=== PATIENT | female | born 1985 | race Caucasian/White ===

== ENCOUNTER 2018-06-10 09:22 | Outpatient (REF) | payer MEDICARE, MEDICAID, SELFPAY ==
[2018-06-11 10:54] LABS: Campylobacter PCR SEE COMMENTS; Salmonella PCR SEE COMMENTS; Shiga Toxin PCR SEE COMMENTS; Shigella/Enteroinvasive Ecoli SEE COMMENTS
== END 2018-06-10 09:42 ==
LOC: NCHCN 09:22
PROVIDERS: PCP Specialist/Technologist Athletic Trainer; Visit Provider Family Medicine
DX: R50.9 Fever, unspecified (principal); R19.7 Diarrhea, unspecified
CPT/HCPCS: 87505

== ENCOUNTER 2018-12-17 13:01 | Outpatient (REF) | payer MEDICARE, MEDICAID, SELFPAY ==
[2018-12-19 09:58] LABS: Hepatitis C Ab w Rflx HCV PCR Reactive (NEGAT)
== END 2018-12-17 13:21 ==
LOC: NCHCN 13:01
PROVIDERS: PCP Specialist/Technologist Athletic Trainer; Visit Provider Family Medicine
DX: Z11.59 Encounter for screening for other viral diseases (principal); R69 Illness, unspecified
CPT/HCPCS: 86803; 87522

== ENCOUNTER 2018-12-17 14:45 | Outpatient (CLI) | payer MEDICARE, MEDICAID, SELFPAY ==
--- NOTE | 2018-12-17 13:36 | DI.RAD_ITS ---
SYMPTOMS/DIAGNOSIS: RIGHT FOOT PAIN, M79.671 RIGHT FOOT: Three views. No acute or healing fracture or dislocation, lytic or sclerotic lesion is seen. The joint spaces appear well maintained. There are spurs seen at the posterior calcaneus. The soft tissues are unremarkable. IMPRESSION: No acute abnormality.
== END 2018-12-17 15:05 ==
PROVIDERS: PCP Specialist/Technologist Athletic Trainer; Visit Provider Family Medicine
DX: M79.671 Pain in right foot (principal); M77.31 Calcaneal spur, right foot
CPT/HCPCS: 86803; 73630

== ENCOUNTER 2019-04-15 13:04 | Outpatient (REF) | payer MEDICARE, MEDICAID, SELFPAY ==
[2019-04-15 21:43] LABS: HCT 41.2 % (36.0-46.0); HGB 13.7 g/dL (12.0-15.5); Mean Corp. HGB Concentration 33.3 g/dL (32.0-36.0); Mean Corpuscular Hemoglobin 30.6 pg (27.0-33.0); Mean Corpuscular Volume 92.2 fL (80-95); Mean Platelet Volume 11.5 fL (8.0-11.0); Platelet Count 231 x1000/uL (130-400); RBC 4.47 m/cumm (4.00-5.20); RBC Distribution Width 13.5 % (11.7-14.6); White Blood Cell Count 8.86 k/cumm (4.4-10.8)
[2019-04-15 22:18] LABS: ALT 25 U/L (14-59); AST 14 U/L (15-37); Albumin 3.8 g/dL (3.4-5.0); Alkaline Phosphatase 76 U/L (46-116); Anion Gap 10.3 mmol/L (3-11); BUN 11 mg/dL (7-18); Bilirubin, Total 0.5 mg/dL (0.2-1.0); CO2 23.7 mmol/L (21.0-32.0); CREATININE 0.71 mg/dL (0.55-1.02); Calcium 8.7 mg/dL (8.5-10.1); Chloride 105 mmol/L (98-107); Glucose 76 mg/dL (70-100); Potassium 4.2 mmol/L (3.5-5.1); Sodium 139 mmol/L (136-145); TSH (W/Ref FT4) 1.98 uIU/mL (0.36-3.74); Total Protein 7.1 g/dL (6.4-8.2)
== END 2019-04-15 13:24 ==
LOC: NCHCN 13:04
PROVIDERS: PCP Specialist/Technologist Athletic Trainer; Visit Provider Family Medicine
DX: R53.83 Other fatigue (principal); R23.8 Other skin changes; B19.20 Unspecified viral hepatitis C without hepatic coma
CPT/HCPCS: 80053; 85027; 84443

== ENCOUNTER 2019-04-29 10:39 | Outpatient (CLI) | payer MEDICARE, MEDICAID, SELFPAY ==
--- NOTE | 2019-04-29 10:15 | DI.RAD_ITS ---
EXAM: XR KNEE RT 2V AP,LAT INDICATION: pain. COMPARISON: RIGHT KNEE LIMITED 1 OR 2 VIEW from 11/04/2015 TECHNIQUE: 2D digital imaging was performed. FINDINGS: Hardware is again noted in the proximal tibia. There is stable narrowing of the medial femoral tibia l joint space as well as periarticular spurring. There is mild spurring at the patellofemoral joint. IMPRESSION: Stable postsurgical and degenerative changes.
== END 2019-04-29 10:59 ==
PROVIDERS: PCP Specialist/Technologist Athletic Trainer; Referring Provider Specialist/Technologist Athletic Trainer; Visit Provider Orthopaedic Surgery
DX: M25.561 Pain in right knee (principal); M17.11 Unilateral primary osteoarthritis, right knee; Z98.890 Other specified postprocedural states
CPT/HCPCS: 99213; 73560

== ENCOUNTER 2019-05-09 08:55 | Outpatient (CLI) | payer MEDICARE, MEDICAID, SELFPAY ==
[2019-05-09 10:21] LABS: Abs Immature Grans 0.02 k/cumm (0.0-0.09); Absolute Basophil Count 0.03 k/cumm (0.0-0.2); Absolute Eosinophil Count 0.35 k/cumm (0.0-0.7); Absolute Lymphocyte Count 2.38 k/cumm (1.2-3.4); Basophils % 0.3; Eosinophils % 3.2; HGB 15.8 g/dL (12.0-15.5); Immature Grans % 0.2; Lymphocytes % 21.7; Mean Corp. HGB Concentration 34.3 g/dL (32.0-36.0); Mean Corpuscular Hemoglobin 31.3 pg (27.0-33.0); Mean Corpuscular Volume 91.3 fL (80-95); Mean Platelet Volume 9.9 fL (8.0-11.0); Monocytes % 5.7; Neutrophils % 68.9; Platelet Count 264 x1000/uL (130-400); RBC 5.04 m/cumm (4.00-5.20); RBC Distribution Width 13.6 % (11.7-14.6); White Blood Cell Count 10.97 k/cumm (4.4-10.8)
[2019-05-09 10:28] LABS: Absolute Monocyte Count 0.63 k/cumm (0.11-0.7); Absolute Neutrophil Count 7.56 k/cumm (1.2-6.7)
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
== END 2019-05-09 09:15 ==
PROVIDERS: PCP Family Medicine; Visit Provider Orthopaedic Surgery
DX: M25.561 Pain in right knee (principal); M17.11 Unilateral primary osteoarthritis, right knee; Z01.818 Encounter for other preprocedural examination; Z01.812 Encounter for preprocedural laboratory examination
CPT/HCPCS: 36415; NC; 85025

== ENCOUNTER 2019-05-12 06:35 | Inpatient (IN) | payer MEDICARE, MEDICAID, SELFPAY ==
[2019-05-12] VITALS (15 sets, daily range): BP systolic 116–154; BP diastolic 52–93; PULSE 61–101; RESP 12–30; TEMP 36.6–37.9; O2SAT 94–100
[2019-05-12] MEDS: Lactated Ringers 1,000 ML 80 ML IV ×2 (07:43→13:13)
[2019-05-12] MEDS: ceFAZolin 1 GM/50 ML BAG IVPB (09:39)
[2019-05-12] MEDS: Hydrogen Peroxide 3% 480 ML BTL (10:07)
--- NOTE | 2019-05-12 12:40 | DI.RAD_ITS ---
EXAM: XR KNEE RT 2V AP,LAT INDICATION: check total knee components in RR. COMPARISON: XR KNEE RT 2V AP,LAT from 04/29/2019 TECHNIQUE: 2D digital imaging was performed. FINDINGS: The patient is status post TKA. The prosthesis in excellent position, surrounding bone intact.
[2019-05-12] MEDS: fentaNYL 100 MCG/2 ML VIAL IVP ×2 (12:44→13:02)
[2019-05-12] MEDS: HYDROmorphone 2 MG/ML VIAL IVP ×4 (12:50→13:41)
[2019-05-12] MEDS: Normal Saline Flush 10 ML SYR IV ×2 (12:50→23:31)
[2019-05-12] MEDS: HYDROcodone 5/Acetaminophen 325 TAB PO ×2 (14:15→19:38)
[2019-05-12] MEDS: Docusate Sodium 100 MG CAP PO ×2 (14:15→19:38)
[2019-05-12] MEDS: Normal Saline 1,000 ML 125 ML IV ×2 (14:16→21:03)
[2019-05-12] MEDS: fentaNYL 100 MCG/2 ML VIAL 50 MCG IVP ×2 (16:03→23:30)
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
[2019-05-12] MEDS: oxyCODONE-CR 10 MG TABCR PO (17:38)
[2019-05-12] MEDS: Ketorolac 30 MG/ML VIAL IVP ×2 (17:38→23:30)
[2019-05-12] MEDS: Aspirin 81 MG CHEW PO (19:38)
[2019-05-13] MEDS: HYDROcodone 5/Acetaminophen 325 TAB PO ×3 (03:50→20:32)
[2019-05-13] MEDS: oxyCODONE-CR 10 MG TABCR PO ×2 (05:55→17:12)
[2019-05-13] MEDS: Ketorolac 30 MG/ML VIAL IVP ×3 (05:55→17:11)
[2019-05-13] MEDS: Normal Saline 1,000 ML 125 ML IV (05:55)
[2019-05-13] MEDS: Normal Saline Flush 10 ML SYR IV ×2 (05:56→10:17)
[2019-05-13 07:10] VITALS: BP 126/89; PULSE 74; RESP 16; TEMP 36.8; O2SAT 98
[2019-05-13 07:42] LABS: HCT 40.9 % (36.0-46.0); HGB 13.7 g/dL (12.0-15.5); Mean Corp. HGB Concentration 33.5 g/dL (32.0-36.0); Mean Corpuscular Hemoglobin 30.9 pg (27.0-33.0); Mean Corpuscular Volume 92.3 fL (80-95); Mean Platelet Volume 10.5 fL (8.0-11.0); Platelet Count 217 x1000/uL (130-400); RBC 4.43 m/cumm (4.00-5.20); RBC Distribution Width 13.5 % (11.7-14.6); White Blood Cell Count 11.76 k/cumm (4.4-10.8)
[2019-05-13] MEDS: Ascorbic Acid 500 MG TAB PO (08:48)
[2019-05-13] MEDS: Multivitamin w/Minerals TAB 1 TAB PO (08:48)
[2019-05-13] MEDS: Docusate Sodium 100 MG CAP PO ×3 (08:49→20:32)
[2019-05-13] MEDS: Aspirin 81 MG CHEW PO ×2 (08:49→20:32)
[2019-05-13] MEDS: Folic Acid 1 MG TAB PO (08:49)
[2019-05-13] MEDS: Pantoprazole 40 MG TABCR PO (08:49)
[2019-05-13] MEDS: fentaNYL 100 MCG/2 ML VIAL 50 MCG IVP ×2 (08:49→13:04)
[2019-05-13 11:20] VITALS: BP 133/61; PULSE 81; RESP 16; TEMP 36.6; O2SAT 99
--- NOTE | 2019-05-13 12:38 | PT.INTREAT ---
Date of service: 05/13/19 Time of Service: 12:39 PT Notes Inpatient Physical Therapy Treatment Note [facility] Date: 05/13/19 PRECAUTIONS:Fall, WBAT R SUBJECTIVE: Catherine reports that she continues to have significant pain in her R knee. She is agreeable to participating in PT. OBJECTIVE: PAIN: Patient c/o significant R LE pain with all activities. BED MOBILITY/TRANSFERS Supine?sit: I with HOB flat Sit?supine: I with HOB flat Sit-stand: SBA in a.m.; S in p.m. Stand-sit: SBA in a.m.; S in p.m. GAIT Assistive Device: FWW Weight bearing: WBAT R Assist: SBA Distance: 20' x2 in a.m.; 40' +20' x2 in p.m. Deviation: Cueing for increased weight bearing t/o R LE, increased R LE pain THEREX: Patient completed a LE strengthening and stabilization program, in a long-sit position in a.m. and in a supine position in p.m., as per flow sheet. Patient was able to perform active SLR x7 without Kessler dressing in p.m., she was unable to continue due to increased R LE pain. Unable to obtain ROM measurements due to increased pain. She ends with cryocuff to R LE. TOILETING: Patient toileted with SBA for transfers in a.m.; she toileted with S for transfers in p.m. REMOVAL OF KESSLER: Incision clean, dry, and intact. No abnormal sensitivity, redness, or blistering. Replaced with Xeroform gauze, 4?4 gauze, tape, and thigh-high DARLENE stocking. ASSESSMENT: Patient tolerated a progression in gait distance with FWW support and SBA, c/o increased R LE pain. She would benefit from continued gait and transfer training, as well as strengthening for improved mobility and activity tolerance. PLAN: Continue with PT's POC TREATMENT CODE/TIME: Session 1: 35 minutes; [id number], [id number] Session 2: 65 minutes; 51169 x3, 44087 x2
--- NOTE | 2019-05-13 14:41 | W.PM.PROGNOT ---
Date of Service Date of service: 05/13/19 Time of Service: 14:41 Assessment and Plan Assessment and plan (1) Status post total knee replacement: Status: Acute Assessment and plan: Assessment: Stable postop day #1 right total knee replacement. I think is reasonable to take off her Kessler dressing and get her moving at this time. Plan: DC Kessler dressing this afternoon. Start active flexion of her right knee today. Continue to mobilize per protocol for total knee replacement. DC IV fluids. Should be able to DC home when she is taking only p.o. pain meds and is fully independent with her mobility. Subjective Subjective Interval history since last seen: She says her pain is much less today. She is glad is finally coming under control. She was surprised that she could actually step on her leg and the did not feel too bad. She is walked to the bathroom and back today. She would like to have a Kessler dressing off since she feels it somewhat constricting. Exam Narrative Exam Narrative: She is afebrile vital signs are stable. Hemoglobin today is 13.7 g. She has voided since her Guerrier was DC'd. She has good active plantar flexion dorsiflexion of her right toes and ankle. She has good sensation to her right foot. Intakes and outputs are good. She is ambulated to the bathroom and back with PT today. Objective Objective Clinical Data: Abnormal lab results 05/13/19 Range/Units 07:09 WBC 11.76 H (4.4-10.8) k/cumm Vital Signs Temperature 36.6 C 05/13/19 11:20 Temperature Source Tympanic 05/13/19 11:20 Pulse 81 05/13/19 11:20 Pulse Rhythm Regular 05/13/19 10:50 Respiratory Rate 16 05/13/19 11:20 Respiratory Effort Non-Labored 05/13/19 10:50 Respiratory Depth Normal 05/13/19 10:50 Respiratory Pattern Normal 05/13/19 10:50 Blood Pressure 133/61 05/13/19 11:20 Pulse Oximetry 99 05/13/19 11:20 Oxygen Delivery Method Room Air 05/13/19 11:20 Oxygen Flow Rate 0 05/13/19 11:20 Pain Level 8 05/13/19 13:04 Comment 05/13/19 05:40 Intake & Output 05/12/19 05/13/1905/13/19 23:59 11:59 23:59 Intake Total 1914.250 / 2885.250 1770 / 1770 Output Total 1650 / 1650 Balance 1915.250 / 2585.250 120 / 120 Intake: IV 1665.250 / 2635.250 1100 / 1100 Oral 250 / 250 670 / 670 Output: Urine 1650 / 1650 Other: Urine Color Yellow Urine Appearance Clear Clear Comment dark yellow Emesis Description None Voiding Methods Toilet Laboratory Results WBC 11.76 k/cumm (4.4-10.8) H 05/13/19 07:09 RBC 4.43 m/cumm (4.00-5.20) 05/13/19 07:09 Hgb 13.7 g/dL (12.0-15.5) 05/13/19 07:09 Hct 40.9 % (36.0-46.0) 05/13/19 07:09 MCV 92.3 fL (80-95) 05/13/19 07:09 MCH 30.9 pg (27.0-33.0) 05/13/19 07:09 MCHC 33.5 g/dL (32.0-36.0) 05/13/19 07:09 RDW 13.5 % (11.7-14.6) 05/13/19 07:09 Plt Count 217 x1000/uL (130-400) 05/13/19 07:09 MPV 10.5 fL (8.0-11.0) 05/13/19 07:09
--- NOTE | 2019-05-13 15:12 | INITIAL_ITS ---
Care Management Initial Assess REASON FOR HOSPITALIZATION:: Post-Op R Total Knee PAST MEDICAL HISTORY/PAST SURGICAL HISTORY:: Anxiety and depression, asthma, Hep C w/o coma; chronic, anemia, substance abuse, osteoarthritis knee, PTSD, arthroscopic knee surgery, tympanostomy tube placement, osteoarthritis of right knee PREVIOUS FUNCTIONAL STATUS/SOCIAL/FAMILY SUPPORTS:: Catherine resides in [place] with her significant other, Andrew. She is independent at baseline, though on disability due to functional issues related to her mental health. CURRENT FUNCTIONAL STATUS:: Catherine is sitting up in her chair, open and engaged in conversation with this policy writer sales. Her significant other is also sitting in a chair in the room and engages well and appears supportive. ADVANCE DIRECTIVES:: None on file. Has patient been provided with information about the portal?: Yes Did the patient sign up for the portal?: No CODE STATUS:: Full Code INSURANCE COVERAGE / FINANCIAL ISSUES:: Medicare. Medicaid CURRENT HOME/COMMUNITY SERVICES/EQUIPMENT:: No current services or equipment. PRIMARY CARE PHYSICIAN:: Shelley Pal POTENTIAL DISCHARGE NEEDS:: New orders for [facility] PT/OT PATIENT/FAMILY EDUCATION NEEDS:: Review of discharge instructions, DME options. ANTICIPATED BARRIERS TO DISCHARGE:: None identified. TRANSPORTATION:: Via private vehicle with her significant other. PLAN:: Catherine will return home when ready per MD. Anticipate she will have new orders for PT/OT through [facility] and a new FWW through [facility]; patient's choice. She will follow up with Dr. Saini and her plan of care as prescribed. She will transport via private vehicle with her significant other, Andrew.
[2019-05-13 15:47] VITALS: BP 136/83; PULSE 74; RESP 18; TEMP 36.9; O2SAT 99
--- NOTE | 2019-05-13 16:31 | ROE_ITS ---
DATE OF PROCEDURE: May 12, 2019 PREOPERATIVE DIAGNOSIS: Osteoarthritis right knee. POSTOPERATIVE DIAGNOSIS: Same. PROCEDURE: Right total knee replacement. COMPONENTS USED: 1. Size 2 femoral component, posterior cruciate-retaining. 2. Size 2 tibial tray. 3. Size 2, 12.5 rotating platform polyethylene tibial insert. The patella was not resurfaced. All components were cemented. ANESTHESIA: General plus femoral nerve block, Aristeo Reis CRNA SURGEON: Ren Saini M.D. ADMISSIONS DEAN: Jam Sherwood INDICATIONS: This is a 34-year-old white female with long-standing osteoarthritis of her right knee. She had a proximal tibial osteotomy performed a little over nine years ago, which provided good rel ief of pain until the last 6 to 8 months. Her pain has become intolerable and she cannot function wi th her activities of daily living because of the pain. Total knee replacement was therefore recommen ded to alleviate her pain. The risks and complications of the procedure were explained to the patien t in detail preoperatively. PROCEDURE: The patient was taken to the Operating Room on 05/12/19. She was placed supine on the op erating table. A femoral nerve block was administered and then a general anesthetic was administered . A proximal tourniquet was applied to the right thigh and then the right lower extremity was prepp ed from toes to tourniquet and draped free in the usual sterile fashion. Under proximal tourniquet control, I made an incision in line with her old scar from the proximal tib ial osteotomy, and then curved it back to the midline proximally, ending about four inches proximal t o the patella. The incision was carried down to the fascia. Subcutaneous veins were cauterized. A medial parapatellar capsular incision was made. The patella was everted and the knee was hyperflexed . The anterior cruciate ligament was sacrificed. The medial and lateral menisci were excised. A me dial subperiosteal release was performed to balance her varus deformity. The distal femur was then r esecting using intramedullary alignment guides and jigs. She was found to require a size 2 femoral c omponent. The proximal tibia was then resected using extramedullary alignment guides and jigs. In t he process of resecting the tibia, a broken screw from her previous tibial osteotomy was identified a nd was able to be removed with minimal bone loss. The keel for the tibial component was then reamed and punched out in proper rotation alignment. Trial reduction showed a 12.5 mm insert provided good stability throughout the range of flexion while still allowing full extension of the knee. Because o f her young age and mild damage to the patella, I decided not to resurface the patella. The proximal tibia was prepared for cementing with pulse irrigation lavage of saline solution and dry ing with peroxide-soaked strip sponges. One batch of gentamicin-impregnated methylmethacrylate was v acuum-mixed and hand-packed onto the prepared tibia and on the undersurface of the tibial tray. The tibial tray was inserted and impacted into place with the impactor and mallet. The tibial tray was f urther pressurized using the trial components and extending the knee. Excess cement was trimmed from the margins of the tibial tray while the cement was still soft using the plastic cement removal tool . When the first batch of methylmethacrylate had cured, the trial components were removed. The dril l for the lugs of the femoral component were then drilled and then the distal femur was prepared for cementing with pulse irrigation lavage of saline solution and drying with peroxide-soaked strip spong es. Another batch of gentamicin-impregnated methylmethacrylate was vacuum-mixed and hand-packed onto the prepared distal femur and on the posterior aspect of the femoral component. The femoral compone nt was impacted into place with the impactor and mallet and pressurized using the trial insert and ex tending the knee. Excess cement was trimmed from the margins of the femoral component while the ceme nt was still soft using the plastic cement removal tool. When the second batch of methylmethacrylate had cured, the trial insert was removed. The posterior recesses were checked and any residual bone or cement debris was removed at this point. The knee was irrigated with pulse irrigation lavage a fi nal time and then was irrigated with Betadine and saline solution, which was allowed to remain in the wound for a minute before suctioning. Patellar tracking was checked using the kjzi-yy-hv-thumb and the patella tracked with just a mild tendency to track laterally. I then performed a limited lateral retinacular release using the pie-crusting technique. The actual 12.5, size 2 tibial insert was the n placed into the tibial component and reduced onto the femoral condyles. The right knee was flexed over soft goods and closure was begun. The medial parapatellar capsular incision was approximated wi th interrupted uqhqit-[id number]-kbdqh sutures of #1 Vicryl suture material. The quadriceps tendon was repai red with interrupted quujns-ey-hhelm sutures of #1 Vicryl suture material. The wound margins were in filtrated with 0.5% Marcaine with an epinephrine solution, as was the knee joint capsule. I then ins tilled into the knee an additional 20 cc's of 0.5% Marcaine with an epinephrine solution for postoper ative analgesia. The subcu was approximated with interrupted #2-0 Vicryl sutures. The skin edges we re approximated skin kathy. Sterile dressings were applied followed by a long-leg Kessler compressiv e dressing. A knee immobilizer splint was placed over the compressive dressing to maintain the knee in extension. The tourniquet was released. Blood loss was minimal. The patient's anesthesia was re versed without complications. She was discharged to the recovery room in good condition.
[2019-05-13 19:01] VITALS: BP 138/96; PULSE 91; RESP 16; TEMP 36.8; O2SAT 98
[2019-05-14] MEDS: Ketorolac 30 MG/ML VIAL IVP ×4 (00:30→23:03)
[2019-05-14 01:52] VITALS: BP 131/81; PULSE 77; RESP 17; TEMP 37; O2SAT 99
[2019-05-14] MEDS: HYDROcodone 5/Acetaminophen 325 TAB PO ×3 (02:30→14:20)
[2019-05-14] MEDS: oxyCODONE-CR 10 MG TABCR PO ×2 (05:27→18:13)
[2019-05-14] MEDS: Normal Saline Flush 10 ML SYR IV ×4 (05:28→23:04)
[2019-05-14 05:59] VITALS: BP 132/92; PULSE 81; RESP 18; TEMP 37.1; O2SAT 98
[2019-05-14] MEDS: Docusate Sodium 100 MG CAP PO ×3 (07:39→20:05)
[2019-05-14] MEDS: Multivitamin w/Minerals TAB 1 TAB PO (07:39)
[2019-05-14] MEDS: Folic Acid 1 MG TAB PO (07:39)
[2019-05-14] MEDS: Ascorbic Acid 500 MG TAB PO (07:40)
[2019-05-14] MEDS: Pantoprazole 40 MG TABCR PO (07:41)
[2019-05-14] MEDS: Aspirin 81 MG CHEW PO (07:41)
[2019-05-14 07:55] VITALS: BP 135/93; PULSE 75; RESP 20; TEMP 37.4; O2SAT 97
[2019-05-14 08:55] LABS: HCT 39.1 % (36.0-46.0); HGB 13.1 g/dL (12.0-15.5); Mean Corp. HGB Concentration 33.5 g/dL (32.0-36.0); Mean Corpuscular Volume 92.4 fL (80-95); Mean Platelet Volume 10.6 fL (8.0-11.0); Platelet Count 187 x1000/uL (130-400); RBC 4.23 m/cumm (4.00-5.20); RBC Distribution Width 13.2 % (11.7-14.6); White Blood Cell Count 10.22 k/cumm (4.4-10.8)
[2019-05-14] MEDS: fentaNYL 100 MCG/2 ML VIAL 50 MCG IVP (09:19)
[2019-05-14 09:58] VITALS: O2SAT 97
--- NOTE | 2019-05-14 11:29 | CMPROGNOTE_ITS ---
Care Management Progress Note S/O: Per PT, Catherine is making slow progress and struggling with increased pain. 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 CM discussed possiblility of SNF at PT recommendation, Catherine became teary and reported she would like to return home to her dog and her significant other. She reported she has four steps to enter her home but shared concerns that she is not progressing as much as she should and feels she is regressing with progress. She reports bleeding during PT today, CM provided supportive listening and provided re-assurance. CM continues to follow. A: 34 year old female admitted to [facility] 05/12/19 for Post-Op Right total knee surgery completed by Dr. Saini. P: Catherine will return home when ready per MD. Anticipate she will have new orders for PT/OT through [facility] and a new FWW through [facility]; patient's choice. She will follow up with Dr. Saini and her plan of care as prescribed. She will transport via private vehicle with her significant other, Andrew.
--- NOTE | 2019-05-14 12:16 | PT.INTREAT ---
Date of service: 05/14/19 Time of Service: 12:16 PT Notes Inpatient Physical Therapy Treatment Note [facility] Date: 05/14/19 PRECAUTIONS:Fall, WBAT R SUBJECTIVE: Catherine reports that she has noticed decreased pain in her R knee today versus yesterday. She continues to express concern regarding her home situation, as she is the primary caregiver and states that she will have no additional help once she is home. She is agreeable to participating in PT. OBJECTIVE: Attempted to see patient in afternoon, held session due to bloody drainage from incision site. Alerted nursing. Please see nursing notes for specific details on drainage and re-dressing incision site. Patient was then seen by Agnieszka Franklin, PT, following clearance from Dr. Saini. PAIN: Patient c/o R LE pain with all activities. BED MOBILITY/TRANSFERS Supine?sit: I with HOB flat Sit?supine: I with HOB flat Sit-stand: I Stand-sit: I GAIT Assistive Device: FWW Weight bearing: WBAT R Assist: SBA Distance: 60' + 20' + 40' Deviation: Cueing for increased weight bearing t/o R LE, increased R LE pain, step-through gait pattern instruction THEREX: Patient completed a LE strengthening and stabilization program, in a supine position in a.m. and in a position in p.m., as per flow sheet. Patient was able to perform active SLR x10. R knee AROM is -5-75 degrees. She ends with cryocuff to R LE. ASSESSMENT: Patient tolerated a progression in gait distance with FWW support and SBA, using step-through gait pattern following instruction, although with c/o increased R LE pain. She would benefit from continued gait and transfer training, as well as strengthening for improved mobility and activity tolerance. PLAN: Continue with PT's POC TREATMENT CODE/TIME: 35 minutes; 52927, [id number]
[2019-05-14] MEDS: fentaNYL 25 MCG PATCH TD (12:44)
[2019-05-14] MEDS: Tranexamic Acid 650 MG TAB 1300 MG PO (14:13)
--- NOTE | 2019-05-14 15:19 | W.PM.PROGNOT ---
Date of Service Date of service: 05/14/19 Time of Service: 15:19 Assessment and Plan Assessment and plan (1) Status post total knee replacement: Status: Acute Assessment and plan: Assessment: 48 hours postop right total knee replacement progressing well. I reassured her that the bleeding from her incision is minor and will not slow her progress. I think the Mepilex dressing with overlying Jamison bandage and ABD pad should limit further bleeding. I think that the oral TXA would also help. I do not see any reason to slow down her rehab. Plan: We will continue to mobilize her per protocol with PT. Will monitor wound for further bleeding. Will DC home when she is fully independent and taking only p.o. pain meds. Subjective Subjective Interval history since last seen: Patient experienced bleeding that soaked through her dressings in the head refrigerating engineer around 1 AM when she got up to go to the bathroom. Said blood get over the floor. She had 2 more episodes of bleeding to the dressings this morning and afternoon time. I was paged at 1:30 PM to be informed about the bleeding from the lower part of the incision. I recommend reinforcing the dressings until I could see her. Also ordered a 1300 mg dose of tranexamic acid. Catherine is really quite anxious now about the whole incident. She is concerned about doing her exercises and that she may be doing too much. Prior to this onset she was actually moving very well. Still having a lot of pain but it seems to be controlled with her medications so far. Exam Narrative Exam Narrative: I remove her dressings. I can see where she has had some bleeding from the lower portion of her incision. There is no spontaneous bruising. There is no erythema. The rest of the incision is fully sealed. There is no active bleeding at this time. There is no subcutaneous hematoma seen. I apply a Mepilex dressing to seal the incision. I then overwrapped with an ABD pad and 6 inch Jamison bandage. She is afebrile. Her hemoglobin is 13.1 g today. She is flexing and need to 75 degrees. She is independent with transfers. She is walking over 100 feet. Objective Objective Clinical Data: Vital Signs Temperature 37.4 C 05/14/19 07:55 Temperature Source Tympanic 05/14/19 07:55 Pulse 75 05/14/19 07:55 Pulse Rhythm Regular 05/14/19 09:58 Respiratory Rate 20 05/14/19 07:55 Respiratory Effort Non-Labored 05/14/19 09:58 Respiratory Depth Normal 05/14/19 09:58 Respiratory Pattern Normal 05/14/19 09:58 Blood Pressure 135/93 H 05/14/19 07:55 Pulse Oximetry 97 05/14/19 09:58 Oxygen Delivery Method Room Air 05/14/19 09:58 Oxygen Flow Rate 0 05/14/19 09:58 Pain Level 9 05/14/19 14:20 Comment 05/13/19 05:40 Intake & Output 05/13/19 05/14/19 05/14/19 23:59 11:59 23:59 Intake Total 1580 / 3350 790 / 790 Output Total 850 / 2500 1000 / 1000 Balance 730 / 850 -210 / -210 Intake: IV 1100 / 2200 50 / 50 Oral 480 / 1150 740 / 740 Output: Urine 850 / 2500 1000 / 1000 Other: Urine Color Yellow Yellow Yellow Urine Appearance Clear Clear Comment unable to measure urine, no hat in toilet Voiding Methods Toilet Toilet Toilet Laboratory Results WBC 10.22 k/cumm (4.4-10.8) 05/14/19 08:37 RBC 4.23 m/cumm (4.00-5.20) 05/14/19 08:37 Hgb 13.1 g/dL (12.0-15.5) 05/14/19 08:37 Hct 39.1 % (36.0-46.0) 05/14/19 08:37 MCV 92.4 fL (80-95) 05/14/19 08:37 MCH 31.0 pg (27.0-33.0) 05/14/19 08:37 MCHC 33.5 g/dL (32.0-36.0) 05/14/19 08:37 RDW 13.2 % (11.7-14.6) 05/14/19 08:37 Plt Count 187 x1000/uL (130-400) 05/14/19 08:37 MPV 10.6 fL (8.0-11.0) 05/14/19 08:37
[2019-05-14 15:40] VITALS: BP 120/85; PULSE 73; RESP 20; TEMP 37.2; O2SAT 99
--- NOTE | 2019-05-14 16:41 | PT.INTREAT ---
Date of service: 05/14/19 PT Notes PT Inpatient Treatment Note Date: 05/14/19 PRECAUTIONS: Fall. Standard. WBAT R. SUBJECTIVE: Catherine is agreeable to a follow up session with PT this afternoon. She is agreeable to holding off on the stair negotiation training in light of the earlier minor incisional bleeding she had as she appears to be mildy shaken by it when this PT came in. She is amenable to doing light exercises while seated. She did express her concern about her ability to care for her significant other Andrew considering her current mobility level and pain complaint. OBJECTIVE: ZACH wraps on R LE with no bloody drainage observed. PAIN: 8/10 pain on R knee with exercises. BED MOBILITY/TRANSFERS Supine?sit: I with HOB flat Sit?supine: I with HOB flat Sit-stand: I Stand-sit: I GAIT Assistive Device: FWW Weight bearing: WBAT R Assist: SBA Distance: 15' from bathroom to recliner Deviation: Patient continues to complain of pain with weight-bearing although she does demonstrate increased tolerance compared to day of evaluation. She did not report any oozing/drainage felt on incision site during this short ambulation activity. R knee flexion continues to be limited. THEREX: Patient tolerated gluteal and quadriceps setting exercises followed by ankle DF/PF and LAQs on the R with report of 8/10 pain on the R knee. Patient's cryocuff was reapplied after exercise activity. ASSESSMENT: Patient is demonstrating slow functional mobility gains but remains limited by pain. She may benefit from SNF placement in order to progress her mobility level which will allow continued ability to perform her caregiving duties. PLAN: Continue with POC as established. TREATMENT CODE/TIME: 72196 x 17 minutes
[2019-05-14 20:25] VITALS: BP 142/91; PULSE 75; RESP 19; TEMP 37.1; O2SAT 99
[2019-05-15] VITALS (7 sets, daily range): BP systolic 129–151; BP diastolic 79–99; PULSE 65–88; RESP 18–20; TEMP 36.6–37.4; O2SAT 97–100
[2019-05-15] MEDS: HYDROcodone 5/Acetaminophen 325 TAB PO ×4 (01:19→22:09)
[2019-05-15] MEDS: Acetaminophen 325 MG TAB 650 MG PO ×2 (03:42→15:42)
[2019-05-15] MEDS: oxyCODONE-CR 10 MG TABCR PO ×2 (05:31→17:55)
[2019-05-15] MEDS: Ketorolac 30 MG/ML VIAL IVP ×3 (05:32→17:55)
[2019-05-15] MEDS: Docusate Sodium 100 MG CAP PO ×3 (07:58→22:10)
[2019-05-15] MEDS: Multivitamin w/Minerals TAB 1 TAB PO (07:58)
[2019-05-15] MEDS: Ascorbic Acid 500 MG TAB PO (07:58)
[2019-05-15] MEDS: Pantoprazole 40 MG TABCR PO (07:59)
[2019-05-15] MEDS: Aspirin 81 MG CHEW PO (07:59)
[2019-05-15] MEDS: Folic Acid 1 MG TAB PO (07:59)
[2019-05-15] MEDS: Normal Saline Flush 10 ML SYR IV ×3 (11:11→17:55)
[2019-05-15] MEDS: fentaNYL 100 MCG/2 ML VIAL 50 MCG IVP (11:11)
--- NOTE | 2019-05-15 11:27 | CMPROGNOTE_ITS ---
Care Management Progress Note S/O: Catherine continues to make progress with mobility and pain management. Per MD, she will discharge once she is able to safely transfer with only oral medications. CM filled FWW for Catherine through [facility] at her request. CM continues to follow. A: 34 year old female admitted to [facility] 05/12/19 for Post-Op Right total knee surgery completed by Dr. Saini. P: Catherine will return home when ready per MD. Anticipate she will have new orders for PT/OT through [facility] and a new FWW through [facility]; patient's choice. She will follow up with Dr. Saini and her plan of care as prescribed. She will transport via private vehicle with her significant other, Andrew.
--- NOTE | 2019-05-15 11:45 | PT.INTREAT ---
Date of service: 05/15/19 Time of Service: 11:45 PT Notes Inpatient Physical Therapy Treatment Note [facility] Date: 05/15/19 PRECAUTIONS:Fall, WBAT R SUBJECTIVE: Catherine continues to note improvement in her mobility and decreased pain in R knee. She is agreeable to participate in PT. OBJECTIVE: Patient has been cleared to ambulate and transfer independently within her room using FWW, but is not required to use knee immobilizer. No bleeding or drainage noted from incision site during morning PT session. During the afternoon session, bloody drainage noted under Mepilex dressing, which has not soaked through. Nursing alerted, held further ther ex and knee flexion measurements as a result. PAIN: Patient c/o R LE pain with all activities. BED MOBILITY/TRANSFERS Sit-stand: I Stand-sit: I GAIT Assistive Device: FWW Weight bearing: WBAT R Assist: SBA in a.m.; I S in p.m. Distance: 40' x2 + 20' in a.m.; 20' 100' +150' in p.m. Deviation: Increased R LE pain, step-through gait pattern instruction, cueing for continuous FWW advancement in both a.m. and p.m.; standing rest x2, seated rest x1 in p.m. THEREX: Patient completed a LE strengthening and stabilization program, in a long-sitting position in a.m. and p.m., as per flow sheet. Patient is able to perform active SLR x10. R knee extension is approximately 0 degrees. She ends with cryocuff to R LE. STAIRS: Up/down 6x4 and 4x6 using B rails and a step-to pattern with CGA-SBA in a.m.; up/down 3?4 and 2?6 using B axillary crutches and a step to pattern with SBA?S in p.m. ASSESSMENT: Patient tolerated a significant progression in gait distance with FWW support and supervision, using step-through gait pattern and continuous FWW advancement, following instruction, although with c/o increased R LE pain. She was also able to tolerate the addition of stair training using B axillary crutches. She would benefit from continued gait and transfer training, as well as strengthening for improved mobility and activity tolerance. PLAN: Continue with PT's POC TREATMENT CODE/TIME: Session 1: 40 minutes; 23312 x2, 82062 Session 2: 45 minutes; 57820 x2, 59038
--- NOTE | 2019-05-15 14:55 | W.PM.PROGNOT ---
Date of Service Date of service: 05/15/19 Time of Service: 14:56 Assessment and Plan Assessment and plan (1) Status post total knee replacement: Status: Acute Assessment and plan: Assessment: Making steady progress at postop day #3 right total knee replacement. She has some minor bleeding from the incision. Pain is coming under control. This is the only thing holding her back from going home. When she is just taking p.o. pain meds she can go home. I think this will be within the next day or 2. Plan: Continue mobilize with physical therapy. DC home when taking only p.o. pain meds. Subjective Subjective Patient reports: still having pain and pain is less Interval history since last seen: Better every day. She finds IV Toradol is very helpful. She is able to go to the bathroom and back by herself now. Exam Narrative Exam Narrative: She is afebrile vital signs stable. Neurovascular examination right foot normal. She is had some bleeding under her Mepilex dressing but it has not soaked through. She is able to do an active straight leg raise so she does not need her immobilizer. Objective Objective Clinical Data: Vital Signs Temperature 37.4 C 05/15/19 11:25 Temperature Source Skin 05/15/19 11:25 Pulse 71 05/15/19 11:25 Pulse Rhythm Regular 05/15/19 08:09 Respiratory Rate 19 05/15/19 11:25 Respiratory Effort 05/15/19 08:09 Respiratory Depth Normal 05/15/19 08:09 Respiratory Pattern Normal 05/15/19 08:09 Blood Pressure 146/99 H 05/15/19 11:25 Pulse Oximetry 97 05/15/19 11:25 Oxygen Delivery Method Room Air 05/15/19 11:25 Oxygen Flow Rate 0 05/15/19 11:25 Pain Level 7 05/15/19 14:16 Comment 05/15/19 07:10 Intake & Output 05/14/19 05/15/19 05/15/19 23:59 11:59 23:59 Intake Total 20 / 810 1020 / 1260 240 / 1260 Output Total 800 / 1800 950 / 950 Balance -780 / -990 70 / 310 240 / 310 Intake: IV 20 / 70 Oral 1020 / 1260 240 / 1260 Output: Urine 800 / 1800 950 / 950 Other: Urine Color Yellow Yellow Urine Appearance Clear Clear Urine Odor Normal Normal Stool Size Moderate Stool Characteristics Soft Formed Brown Voiding Methods Toilet Toilet Laboratory Results WBC 10.22 k/cumm (4.4-10.8) 05/14/19 08:37 RBC 4.23 m/cumm (4.00-5.20) 05/14/19 08:37 Hgb 13.1 g/dL (12.0-15.5) 05/14/19 08:37 Hct 39.1 % (36.0-46.0) 05/14/19 08:37 MCV 92.4 fL (80-95) 05/14/19 08:37 MCH 31.0 pg (27.0-33.0) 05/14/19 08:37 MCHC 33.5 g/dL (32.0-36.0) 05/14/19 08:37 RDW 13.2 % (11.7-14.6) 05/14/19 08:37 Plt Count 187 x1000/uL (130-400) 05/14/19 08:37 MPV 10.6 fL (8.0-11.0) 05/14/19 08:37
--- NOTE | 2019-05-15 15:09 | CHAPLAIN ---
Catherine was sitting in her chair talking on the phone when stopped. She stopped talking to the person on the phone to have a conversation. 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 Catherine said she has been approached by famous record artists to sing on their album. She has a You Tube presence as Tiffany Javier. Catherine asked for a copy of the prayer of surjit. I was able to find it on line.
[2019-05-15] MEDS: Zolpidem 5 MG TAB 10 MG PO (22:10)
[2019-05-16] MEDS: HYDROcodone 5/Acetaminophen 325 TAB PO ×2 (03:48→09:12)
[2019-05-16] MEDS: Acetaminophen 325 MG TAB 650 MG PO (03:49)
[2019-05-16] MEDS: oxyCODONE-CR 10 MG TABCR PO (06:11)
[2019-05-16 07:30] VITALS: BP 131/89; PULSE 81; RESP 16; TEMP 37.2; O2SAT 93
[2019-05-16] MEDS: Docusate Sodium 100 MG CAP PO (09:13)
[2019-05-16] MEDS: Celecoxib 200 MG CAP PO (09:13)
[2019-05-16] MEDS: Aspirin 81 MG CHEW PO (09:13)
[2019-05-16] MEDS: Folic Acid 1 MG TAB PO (09:13)
[2019-05-16] MEDS: Multivitamin w/Minerals TAB 1 TAB PO (09:13)
[2019-05-16] MEDS: Ascorbic Acid 500 MG TAB PO (09:14)
[2019-05-16] MEDS: Pantoprazole 40 MG TABCR PO (09:14)
[2019-05-16] MEDS: Normal Saline 10 ML VIAL IJ (09:15)
--- NOTE | 2019-05-16 09:32 | PDOC.HHF2F_ITS ---
Home Health Certification Home Health Certification: 1. Encounter Date and Reason I certify that RONALD SHERWOOD was seen by Ren Saini MD on 05/16/19 and that I had a [id number] encounter with this patient that meets the physician face to face encounter requirements. 2. Clinical Findings Supporting Skilled Need and Homebound Status I certify that home health services are medically necessary, include either intermittent detention and/or physical/speech therapy, and that this patient is homebound in that absences from the home require considerable and taxing effort and are infrequent or of short duration, or are attributable to the need to receive medical care. [X] (a) Attached documentation from encounter provides clinical findings supporting skilled need and homebound status (including what assistance patient requires to leave the home). The encounter with the patient was in whole, or in part, for the following medical condition, which is the primary reason for home health care: POST-OP R TOTAL KNEE Retirement: Physical Therapy:ROM and strengthening of R knee s/p TKR Speech Therapy: Homebound:Meets criteria for homebound: Post-op R total knee replacement, limited mobility, no transportation. 3. Certification and Authentication I certify that I composed the above information based on my clinical judgement relating to this patient's medical condition and, if applicable, clinical findings communicated to me by the NPP or inpatient physician who performed the Home Health Referral. All further orders will be obtained through (Community Based Physician - PCP)
--- NOTE | 2019-05-16 09:34 | DSE_ITS ---
Date of service: 05/16/19 Time of Service: 09:34 DS: Diagnosis Discharge Diagnosis (1) Status post total knee replacement: Status: Acute Discharge Plan Disposition Patient Disposition: HOME W/HOME HEALTH SERVICE Condition: Good Discharge Details Reason For Visit: POST-OP R TOTAL KNEE Admit Date/Time: 05/12/19 06:35 Admit Provider: Ren Saini Attending Provider: Ren Saini Primary Care Provider: Shelley Pal V Hospital Course Hospital Course: Patient was taken the operating room on the day of admission 05/12/2019 where she underwent a right total knee arthroplasty without complication. Postoperative she was mobilized per protocol by physical therapy. She progressed well with her mobilization. Pain control postop was the major issue. Multimodal pain regimens were instituted and needed to be extended for a few days more than usual. By 05/16/2019 her pain was under good control by oral medications. The patient requested home discharge at this time. Patient also experience some minor bleeding issues from her incision that stopped by time of discharge. She will have a home health PT and OT follow-up. Home Meds and New Rx's Prescriptions: New ibuprofen [IBU-200] 200 mg tablet 600 mg PO TID Qty: 90 RF: 2 oxycodone-acetaminophen 7.5-325 mg tablet 1 tab PO Q4H PRN (Reason: pain) Qty: 20 RF: 0 No Action Nicotrol 10 mg cartridge 1 inh IH 4-6XD PRNRF: 0 ascorbate calcium (vitamin C) 500 mg tablet 500 mg PO DAILY RF: 0 folic acid 1 mg tablet 1 mg PO DAILY RF: 0 One-A-Day Women's Active 18 mg iron- 400 mcg-180 mg tablet 1 tab PO DAILY RF: 0 acetaminophen [Mapap Extra Strength] 500 MG tablet 1,000 mg PO PRN PRNRF: 0 Discharge Instructions Additional Instructions: Elevate R leg when sitting. Wear long stocking on R during daytime only for next 2 weeks to decrease swelling. Apply cryocuff to R knee 4 times/day for 1 hour each time. May shower and get dressing wet. Pat dressing dry with towel after showering. Walk every day as much as your discomfort allows. Use walker or cane as long as you limp. Home Health physical therapy. Take ibuprofen, 3 tabs (200 mg each), 3 times/day to decrease inflammation and swelling. Take oxycodone as prescribed for breakthru pain. Follow up with on SunMay 28. Referrals: Ren Saini MD [ [facility]FF [facility]YS[facility]IAN] - (f/u 05/28/19, Sun, at Dr.G yung's office.) Activity:: Activity as Tolerated Equipment/Supplies:: Walker Diet:: As Tolerated Discharge Orders Discharge Orders: Discharge Order (Routine); Ordered 05/16/19 Ordered By: Ren Saini DS: Summary Status at Discharge Functional status at discharge: independent ambulation Overall status at discharge: patient is progressing back to baseline Mental Status: mental status grossly normal Speech and Movement: speech and movement normal Mood: congruent mood Affect: normal affect Exam Psych Mental Status: mental status grossly normal Speech and Movement: speech and movement normal Mood: congruent mood Affect: normal affect DS: Data Vitals/I&O Vitals and I&O: Vital Signs Temperature 37.2 C 05/16/19 07:30 Temperature Source Tympanic 05/16/19 07:30 Pulse 81 05/16/19 07:30 Pulse Rhythm Regular 05/16/19 04:28 Respiratory Rate 16 05/16/19 07:30 Respiratory Effort 05/16/19 04:28 Respiratory Depth Normal 05/16/19 04:28 Respiratory Pattern Normal 05/16/19 04:28 Blood Pressure 131/89 05/16/19 07:30 Pulse Oximetry 93 L 05/16/19 07:30 Oxygen Delivery Method Room Air 05/16/19 07:30 Oxygen Flow Rate 0 05/16/19 07:30 Pain Level 7 05/16/19 09:12 Comment 05/15/19 07:10 Intake & Output 05/15/19 05/15/19 05/16/19 11:59 23:59 11:59 Intake Total 1020 / 1760 740 / 1760 Output Total 950 / 950 Balance 70 / 810 740 / 810 Intake: IV Oral 1020 / 1740 720 / 1740 Output: Urine 950 / 950 Other: Urine Color Yellow Yellow Yellow Urine Appearance Clear Clear Clear Urine Odor Normal Normal Normal Stool Size Moderate Stool Characteristics Soft Formed Brown Voiding Methods Toilet Toilet Toilet PFSH Family History (Updated 05/09/19 @ 09:13 by Tessa Bui RN) Other Cancer Social History Smoking/Tobacco Use Status: Current-Occasional Drug use: Daily
--- NOTE | 2019-05-16 16:32 | PT.INTREAT ---
Date of service: 05/16/19 Time of Service: 16:32 PT Notes Inpatient Physical Therapy Treatment Note [facility] Date: 05/16/19 PRECAUTIONS: Fall, WBAT R SUBJECTIVE: Catherine continues to note improvement in her mobility and decreased pain in R knee. She is excited to return to home later today. She is agreeable to participate in PT. OBJECTIVE: Patient has been cleared to ambulate and transfer independently within her room using FWW, but is not required to use knee immobilizer. No bleeding or drainage noted from incision site during morning PT session. Mepilex dressing placed over incision site. PAIN: Patient c/o R LE pain with all activities. BED MOBILITY/TRANSFERS Sit-stand: I Stand-sit: I GAIT Assistive Device: FWW Weight bearing: WBAT R Assist: S Distance: 200' THEREX: Patient completed a LE strengthening and stabilization program, in a long-sitting position, as per flow sheet. Patient is able to perform active SLR x10. R knee ROM is approximately 0-84 degrees. She ends with cryocuff to R LE. ASSESSMENT: Patient tolerated a progression in gait distance with FWW support and supervision, using step-through gait pattern and continuous FWW advancement. She would benefit from continued gait and transfer training, as well as strengthening for improved mobility and activity tolerance. PLAN: per primary PT TREATMENT CODE/TIME: 25 minutes; 57802, [id number]
--- NOTE | 2019-05-16 16:45 | PDOC.CMDIS ---
LACE Index Scoring Tool - Questions: Length of Stay (in days): 3 Acuity (Admit via E.D.?): Yes Comorbidities: Liver or Renal Disease E.D. Visits: 0 - Answers: Total Score: 11 Risk of Readmission: High Risk Care Management Discharge Reason for Hospitalization: Post-Op R Total Knee Discharge Plan: Catherine will return home when ready per MD, she will have new orders for PT/OT through [facility] and a new FWW through [place]; patient's choice. She will follow up with Dr. Saini and her plan of care as prescribed. She will transport via private vehicle with her significant other, Andrew. Patient/Family Education Needs: Review of DME providers, community based supports, discharge instructions. Services Needed at Discharge: DME Agency, Home Delivered Meals, Home Health Care Services
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
== END 2019-05-16 11:55 | disposition home health service (06) | DRG 470 ==
LOC: PDS 06:36 → MS 13:43
PROVIDERS: Admitting Provider Orthopaedic Surgery; PCP Family Medicine; Visit Provider Orthopaedic Surgery
PROC: 0SRC0J9 Replacement of Right Knee Joint with Synthetic Substitute, Cemented, Open Approach (ICD-10-PCS; CPT 27447; principal; 2019-05-12 09:00)
DX: M17.11 Unilateral primary osteoarthritis, right knee (principal); M25.561 Pain in right knee; Z96.651 Presence of right artificial knee joint; G89.18 Other acute postprocedural pain; F41.8 Other specified anxiety disorders; J45.909 Unspecified asthma, uncomplicated; B18.2 Chronic viral hepatitis C; F43.10 Post-traumatic stress disorder, unspecified; Z72.0 Tobacco use; Z23 Encounter for immunization
CPT/HCPCS: 27447; 36415; 76942; 85027; 97110; 97162; 97530; NC; 73560; E0114; J0131; J0690; J1100; J1885; J2250; J2405; J3010; L1830

== ENCOUNTER → 2019-05-28 09:39 | Outpatient (BNVA) | payer MEDICARE, MEDICAID, SELFPAY | PROVIDERS: PCP Family Medicine; Referring Provider Family Medicine; Visit Provider Orthopaedic Surgery | DX: Z47.1 Aftercare following joint replacement surgery (principal); Z96.651 Presence of right artificial knee joint ==

== ENCOUNTER 2019-06-13 09:12 | Outpatient (CLI) | payer MEDICARE, MEDICAID, SELFPAY ==
--- NOTE | 2019-06-13 12:38 | DI.US_ITS ---
EXAM: US LOWER EXTREMITY VENOUS RT CLINICAL HISTORY: RT LEG SWELLING, M79.89, RT KNEE PAIN, M25.561, ? DVT TECHNIQUE: Right lower extremity venous ultrasound performed using grayscale, color-flow, and spectr al Doppler analysis. COMPARISON: No priors for comparison. FINDINGS: The right common femoral, femoral and popliteal veins demonstrate normal compressibility, augmentatio n, and color Doppler. The posterior tibial veins are patent.There is a normal saphenofemoral junction . No Stauffer's cyst is identified. IMPRESSION: No DVT.
--- NOTE | 2019-06-13 12:52 | DI.RAD_ITS ---
EXAM: XR CHEST 2V PA LATERAL CLINICAL HISTORY: COUGH, R05 X 3 MONTHS. TECHNIQUE: 2D digital imaging was performed. COMPARISON: CHEST 2 VIEWS PA,LAT from 08/02/2009 FINDINGS: LUNGS: Clear. No pleural abnormality seen. HEART: Normal. MEDIASTINUM: Normal. OTHER FINDINGS:Normal. IMPRESSION: No acute pulmonary findings.
== END 2019-06-13 09:32 ==
PROVIDERS: PCP Family Medicine; Visit Provider Family Medicine
DX: R22.41 Localized swelling, mass and lump, right lower limb (principal); M79.89 Other specified soft tissue disorders; M25.561 Pain in right knee; R05 Cough
CPT/HCPCS: 71046; 93971

== ENCOUNTER → 2019-07-01 10:50 | Outpatient (BNVA) | payer MEDICARE, MEDICAID, SELFPAY | PROVIDERS: PCP Family Medicine; Referring Provider Family Medicine; Visit Provider Orthopaedic Surgery | DX: Z47.1 Aftercare following joint replacement surgery (principal); Z96.651 Presence of right artificial knee joint; M25.561 Pain in right knee ==